=== PATIENT | male | born 1945 | race Caucasian/White ===

== ENCOUNTER 2018-12-06 02:32 | Emergency (ER) | payer MEDICARE, BC ==
[~2018-12-06] VITALS: Ht 177.8 cm; Wt 94.9 kg
--- NOTE | 2018-12-06 02:42 | NUR ---
AGREE WITH TIRAGE NOTE. PT. AMBULATORY TO BR WITH STEADY GAIT TO ATTEMPT TO PROVIDE URINE SAMPLE. CLEAN CATCH INSTRUCTIONS PROVIDED. PT. DENIES DYSUIA. FAMILY AT FOR SUPPORT.
--- NOTE | 2018-12-06 02:58 | NUR ---
DR. SHANKAR WAS IN TO EVAL PT. AND DISCUSS POC WITH PT. AND FAMILY. URINE SENT TO LAB.
[2018-12-06 03:07] LABS: BASOPHILS # (AUTO) 0.03 x10^3/uL (0-0.1); BASOPHILS % (AUTO) 0 % (0-1); EOSINOPHILS # (AUTO) 0.05 x10^3/uL (0-0.4); EOSINOPHILS % (AUTO) 0 % (1-7); LYMPHOCYTES # (AUTO) 0.87 x10^3/uL (1-3.4); LYMPHOCYTES % (AUTO) 7 % (22-44); MD NO; MEAN CORPUSCULAR HEMOGLOBIN 28.7 pg (27.5-34.5); MEAN CORPUSCULAR HGB CONC 33.2 g/dL (33.2-36.2); MEAN CORPUSCULAR VOLUME 86.3 fL (81-97); MEAN PLATELET VOLUME 7.7 fL (7.4-10.4); MONOCYTES % (AUTO) 5 % (2-9); NEUTROPHILS # (AUTO) 11.98 x10^3/uL (1.8-6.8); NEUTROPHILS % (AUTO) 89 % (42-75); PLATELET COUNT 258 x10^3/uL (130-400); RED BLOOD COUNT 5.67 x10^6/uL (4.38-5.82); RED CELL DISTRIBUTION WIDTH 14.1 % (9.4-14.8)
[2018-12-06 03:12] LABS: CULTURE INDICATED? YES; MICROSCOPIC INDICATED
[2018-12-06 03:19] LABS: ALANINE AMINOTRANSFERASE 29 U/L (12-78); ALBUMIN 3.5 g/dL (3.4-5.0); ANION GAP 3 mmol/L (5-15); CALCIUM 8.7 mg/dL (8.5-10.1); CHLORIDE 109 mmol/L (98-107)
--- NOTE | 2018-12-06 03:20 | NUR ---
PT. TO CT VIA [facility].
[2018-12-06 03:21] LABS: ALKALINE PHOSPHATASE 57 U/L (45-117); BILIRUBIN,TOTAL 0.5 mg/dL (0.2-1.0); TOTAL PROTEIN 6.9 g/dL (6.4-8.2)
--- NOTE | 2018-12-06 03:44 | NUR ---
PT. CHART UP FOR RECHECK BY COLLETTE.
--- NOTE | 2018-12-06 03:51 | NUR ---
PT. PLACED ON CONTINUOUS PULSE OX ABD B/P MONITORS PLACED. VS UPDATED. PT. REPORTS PAIN HAS MOVED TO RIGHT FLANK NOW. DR. SHANKAR AWARE OF RECHECK.
[2018-12-06] MEDS ORDERED: IBUPROFEN 200 MG TABLET ONE (03:56)
[2018-12-06] MEDS ORDERED: HYDROcodone/APAP 10/325 MG TABLET ONE (03:56)
[2018-12-06] MEDS ORDERED: HYDROcodone/APAP 10/325 MG TABLET PO ONE (04:00)
[2018-12-06] MEDS ORDERED: IBUPROFEN 200 MG TABLET PO ONE (04:00)
[2018-12-06 04:32] VITALS: BP 142/64
--- NOTE | 2018-12-06 04:33 | NUR ---
VS UPDATED. PT. REPORTS PAIN HAS IMPROVED AND IS DOWN TO 2/[address] SHANKAR PT. TO D/C.
== END 2018-12-06 05:00 | disposition home or self-care (01) ==
LOC: ED 04:54
DX: K57.30 Diverticulosis of large intestine without perforation or abscess without bleeding (principal); N13.2 Hydronephrosis with renal and ureteral calculous obstruction
CPT/HCPCS: 36415; 74176; 80053; 81001; 83690; 85025; 87086; 99284

== ENCOUNTER → 2019-08-29 | Outpatient (CLI) | payer MEDICARE, BC ==
[~2019-08-29] MED LIST: REGADENOSON 0.4 MG/5 ML SYRINGE ONE
== END | disposition home or self-care (01) ==
LOC: CFH 11:58
PROVIDERS: ATTEND Internal Medicine Cardiovascular Disease
DX: I10 Essential (primary) hypertension (principal); R06.02 Shortness of breath; Z87.891 Personal history of nicotine dependence
CPT/HCPCS: 78452; 93017; A9502; J2785

== ENCOUNTER 2020-04-06 11:00 | Inpatient (IN) | payer MEDICARE, BC ==
[~2020-04-06] VITALS: Ht 177.8 cm; Wt 102.3 kg
[2020-04-06] MEDS ORDERED: ASPIRIN 81 MG TABLET CHEW PO ONE (12:00)
[2020-04-06 12:11] LABS: BASOPHILS # (AUTO) 0.01 x10^3/uL (0-0.1); BASOPHILS % (AUTO) 0 % (0-1); EOSINOPHILS # (AUTO) 0.21 x10^3/uL (0-0.4); EOSINOPHILS % (AUTO) 3 % (1-7); LYMPHOCYTES # (AUTO) 0.32 x10^3/uL (1-3.4); LYMPHOCYTES % (AUTO) 5 % (22-44); MD NO; MEAN CORPUSCULAR HEMOGLOBIN 28.7 pg (27.5-34.5); MEAN CORPUSCULAR HGB CONC 33.1 g/dL (33.2-36.2); MEAN CORPUSCULAR VOLUME 86.7 fL (81-97); MEAN PLATELET VOLUME 7.8 fL (7.4-10.4); MONOCYTES # (AUTO) 0.92 x10^3/uL (0.2-0.8); MONOCYTES % (AUTO) 15 % (2-9); NEUTROPHILS # (AUTO) 4.76 x10^3/uL (1.8-6.8); NEUTROPHILS % (AUTO) 77 % (42-75); PLATELET COUNT 212 x10^3/uL (130-400); RED BLOOD COUNT 4.77 x10^6/uL (4.38-5.82); RED CELL DISTRIBUTION WIDTH 15.1 % (9.4-14.8)
[2020-04-06 12:23] LABS: ALANINE AMINOTRANSFERASE 22 U/L (12-78); ALBUMIN 2.9 g/dL (3.4-5.0); ANION GAP 5 mmol/L (5-15); CALCIUM 9.2 mg/dL (8.5-10.1); CHLORIDE 112 mmol/L (98-107); CREATININE 0.82 mg/dL (0.7-1.3)
[2020-04-06 12:27] LABS: ALKALINE PHOSPHATASE 61 U/L (45-117); BILIRUBIN,TOTAL 0.3 mg/dL (0.2-1.0); TOTAL PROTEIN 6.2 g/dL (6.4-8.2); TROPONIN I < 0.015 ng/mL (0.000-0.045)
[2020-04-06 12:41] LABS: MICROSCOPIC INDICATED
[2020-04-06] MEDS ORDERED: SODIUM CHLORIDE FLUSH 10ML SYR IVF PRN (13:00)
--- NOTE | 2020-04-06 13:00 | NUR ---
PT HAS CO CHEST TIGHTNESS W SOB FOR 4 DAYS. PT STATES HE HAS BEEN WORKING IN HIS GARD[place] AND HE[place] FOR A FEW DAYS. DENIES GI N/V. NO COUGH. 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 PT RESTING. AMBULATES TO BATHROOM W STEADY GAIT
--- NOTE | 2020-04-06 14:30 | NUR ---
PT AMBULATED TO BATHROOM W STEADY GAIT. DENIES CP AT THIS TIME.
[2020-04-06] MEDS ORDERED: TAMS-11 PO (14:43)
--- NOTE | 2020-04-06 14:55 | NUR ---
REPORT TO AIDE
[2020-04-06] MEDS ORDERED: ASPIRIN 81 MG TABLET CHEW ONE (14:57)
[2020-04-06] MEDS ORDERED: ONDANSETRON 2MG/ML, 2ML IVPush PRN (15:00)
[2020-04-06] MEDS ORDERED: morphine SULFATE 10 MG/ML, 1ML IVPush PRN (15:00)
[2020-04-06] MEDS ORDERED: NITROGLYCERIN 0.4 MG BOTTLE (25 TABS) SL PRN (15:00)
[2020-04-06] MEDS ORDERED: LABETALOL 5MG/ML, 20ML IVPush PRN (15:00)
[2020-04-06] MEDS ORDERED: PROMETHAZINE 25 MG/ML, 1ML IM PRN (15:00)
[2020-04-06] MEDS ORDERED: hydrALAzine 20 MG/ML, 1ML IVPush PRN (15:00)
[2020-04-06 15:22] LABS: BASOPHILS # (AUTO) 0.01 x10^3/uL (0-0.1); BASOPHILS % (AUTO) 0 % (0-1); EOSINOPHILS # (AUTO) 0.21 x10^3/uL (0-0.4); EOSINOPHILS % (AUTO) 3 % (1-7); LYMPHOCYTES # (AUTO) 0.32 x10^3/uL (1-3.4); LYMPHOCYTES % (AUTO) 5 % (22-44); MD NO; MEAN CORPUSCULAR HEMOGLOBIN 28.7 pg (27.5-34.5); MEAN CORPUSCULAR HGB CONC 33.1 g/dL (33.2-36.2); MEAN CORPUSCULAR VOLUME 86.7 fL (81-97); MEAN PLATELET VOLUME 7.8 fL (7.4-10.4); MONOCYTES # (AUTO) 0.94 x10^3/uL (0.2-0.8); MONOCYTES % (AUTO) 14 % (2-9); NEUTROPHILS # (AUTO) 5.23 x10^3/uL (1.8-6.8); NEUTROPHILS % (AUTO) 78 % (42-75); PLATELET COUNT 214 x10^3/uL (130-400); RED BLOOD COUNT 4.87 x10^6/uL (4.38-5.82); RED CELL DISTRIBUTION WIDTH 15.3 % (9.4-14.8)
[2020-04-06 15:26] LABS: TROPONIN I < 0.015 ng/mL (0.000-0.045)
[2020-04-06 16:00] VITALS: BP 154/82
[2020-04-06] MEDS: SODIUM CHLORIDE 0.9% 1,000 ML IV SCH (16:14)
[2020-04-06] MEDS: HEPARIN 5,000 UNITS/ML, 1ML SQ SCH ×2 (16:14→22:31)
[2020-04-06] MEDS ORDERED: ALBU8.5H8 INH (16:33)
[2020-04-06] MEDS ORDERED: FLUT1BLS3 IH (16:33)
[2020-04-06] MEDS ORDERED: LOSA50TA14 PO (16:33)
[2020-04-06] MEDS ORDERED: TAMO20TA PO (16:33)
[2020-04-06] MEDS ORDERED: ALBUTEROL HFA 90 MCG/SPRAY INH PRN (18:00)
[2020-04-06 20:51] VITALS: BP 121/63
[2020-04-06] MEDS ORDERED: ATORVASTATIN 80 MG TABLET PO SCH (21:00)
[2020-04-06 21:10] LABS: TROPONIN I < 0.015 ng/mL (0.000-0.045)
[2020-04-06] MEDS: TAMSULOSIN 0.4 MG CAP.ER.24H PO SCH (21:36)
[2020-04-06] MEDS: TAMOXIFEN 10 MG TABLET PO SCH (22:22)
[2020-04-07 00:40] VITALS: BP 112/62
[2020-04-07 03:30] LABS: ALANINE AMINOTRANSFERASE 22 U/L (12-78); ALBUMIN 2.7 g/dL (3.4-5.0); ANION GAP 5 mmol/L (5-15); CALCIUM 8.4 mg/dL (8.5-10.1); CHLORIDE 108 mmol/L (98-107); CREATININE 0.83 mg/dL (0.7-1.3)
[2020-04-07 03:33] LABS: ALKALINE PHOSPHATASE 43 U/L (45-117); BILIRUBIN,TOTAL 0.3 mg/dL (0.2-1.0); CHOLESTEROL, TOTAL 129 mg/dL (140-239); HDL CHOL % 20 % (26-37); HDL CHOLESTEROL (DIRECT) 26 mg/dL (40-60); LDL CHOLESTEROL,CALCULATED 57 mg/dL (54-169); LDL/HDL RATIO 2.2 (0.5-3.0); TOTAL PROTEIN 5.9 g/dL (6.4-8.2); TRIGLYCERIDES 230 mg/dL (50-200); VLDL CHOLESTEROL 46 mg/dL (0-25)
[2020-04-07 03:35] LABS: TROPONIN I < 0.015 ng/mL (0.000-0.045)
[2020-04-07] MEDS: ASPIRIN 325 MG TABLET EC PO SCH (06:05)
[2020-04-07] MEDS: HEPARIN 5,000 UNITS/ML, 1ML SQ SCH ×3 (06:05→23:21)
[2020-04-07 08:17] VITALS: BP 130/71
[2020-04-07] MEDS: LOSARTAN 50MG TABLET PO SCH (09:05)
[2020-04-07] MEDS: TRELEGY ELLIPTA INH SCH (09:06)
[2020-04-07] MEDS: TAMSULOSIN 0.4 MG CAP.ER.24H PO SCH ×2 (09:06→20:27)
[2020-04-07] MEDS: TAMOXIFEN 10 MG TABLET PO SCH ×2 (09:09→20:28)
[2020-04-07] MEDS ORDERED: SODIUM CHLORIDE 0.9% 1,000 ML IV SCH (11:00)
[2020-04-07] MEDS: SODIUM CHLORIDE 0.9% 1,000 ML IV SCH ×4 (11:56→20:29)
[2020-04-07 13:12] VITALS: BP 141/79
[2020-04-07] MEDS ORDERED: MIDAZOLAM 1 MG/ML, 5ML ONE (13:36)
[2020-04-07] MEDS ORDERED: LIDOCAINE-MPF 1%, 5ML ONE (13:37)
[2020-04-07] MEDS ORDERED: HEPARIN 1,000 UNITS/ML, 10ML ONE (13:37)
[2020-04-07] MEDS ORDERED: VERAPAMIL 2.5 MG/ML, 2ML ONE (13:37)
[2020-04-07] MEDS ORDERED: FENTANYL PF 100 MCG/2ML ONE (13:37)
[2020-04-07 20:38] VITALS: BP 139/62
[2020-04-08 02:13] VITALS: BP_SYST 109; BP_SYST 98; BP_DIAS 56; BP_DIAS 59
[2020-04-08] MEDS: SODIUM CHLORIDE 0.9% 1,000 ML IV SCH ×3 (06:36→09:30)
[2020-04-08] MEDS: HEPARIN 5,000 UNITS/ML, 1ML SQ SCH (06:53)
[2020-04-08] MEDS: ASPIRIN 325 MG TABLET EC PO SCH (06:54)
[2020-04-08 08:14] VITALS: BP 146/78
[2020-04-08] MEDS ORDERED: ISOSORBIDE MONONITRATE ER 30 MG TABLET PO SCH (09:00)
[2020-04-08] MEDS ORDERED: NITR0.4T28 SL (09:16)
[2020-04-08] MEDS: TAMSULOSIN 0.4 MG CAP.ER.24H PO SCH (09:22)
[2020-04-08] MEDS: LOSARTAN 50MG TABLET PO SCH (09:22)
[2020-04-08] MEDS: TRELEGY ELLIPTA INH SCH (09:23)
[2020-04-08] MEDS: TAMOXIFEN 10 MG TABLET PO SCH (09:30)
== END 2020-04-08 10:46 | disposition home or self-care (01) | DRG 206 ==
LOC: ED 11:58 → EDIP 13:00 → INTOOBSV 13:00 → 5SO 15:21 → OBSVTOIN 04-07 13:54 → DCLOUNGE 04-08 10:35
PROVIDERS: ADMIT Internal Medicine; ATTEND Internal Medicine
PROC: B2111ZZ Fluoroscopy of Multiple Coronary Arteries using Low Osmolar Contrast (ICD-10-PCS; principal; 2020-04-07)
PROC: 4A023N7 Measurement of Cardiac Sampling and Pressure, Left Heart, Percutaneous Approach (ICD-10-PCS; 2020-04-07)
PROC: B2151ZZ Fluoroscopy of Left Heart using Low Osmolar Contrast (ICD-10-PCS; 2020-04-07)
DX: E66.2 Morbid (severe) obesity with alveolar hypoventilation (principal); I10 Essential (primary) hypertension; E78.1 Pure hyperglyceridemia; R79.89 Other specified abnormal findings of blood chemistry; Z85.46 Personal history of malignant neoplasm of prostate; Z87.442 Personal history of urinary calculi; Z87.891 Personal history of nicotine dependence; Z92.3 Personal history of irradiation; Z68.32 Body mass index [BMI] 32.0-32.9, adult
CPT/HCPCS: 36415; 71045; 80053; 80061; 81001; 83880; 84443; 84484; 85025; 85379; 87086; 87106; 93005; 93306; 93458; 99156; C1769; C1894; G0378; J1644; J2250; J3010; J7030; Q9967